=== PATIENT | female | born 1935 | race African-American/Black ===

== ENCOUNTER 2024-07-13 13:46 | Inpatient (IN) | payer OTHER ==
[~2024-07-13] VITALS: Ht 167.6 cm; Wt 92.2 kg
[2024-07-13 16:02] LABS: APPEARANCE,URINE CLEAR (CLEAR); BILIRUBIN,URINE NEGATIVE (NEGATIVE); COLOR,URINE LIGHT YELLOW (YELLOW); GLUCOSE, URINE (UA) NEGATIVE (NEGATIVE); KETONES,URINE NEGATIVE (NEGATIVE); LEUKOCYTE ESTERASE ,URINE NEGATIVE (NEGATIVE); NITRATE,URINE NEGATIVE (NEGATIVE); OCCULT BLOOD,URINE NEGATIVE (NEGATIVE); PH,URINE 6.5 (5.0-8.0); PH,URINE DRUG SCREEN 6.5 (5.0-8.0); PROTEIN,URINE NEGATIVE (NEGATIVE); SPECIFIC GRAVITIY, URINE 1.013 (1.003-1.030); UROBILINOGEN,URINE <=1.0 mg/dL (<=1.0)
[2024-07-13] MEDS: LORazepam 2 MG/ML VIAL IM ONE (16:02)
[2024-07-13] MEDS: DiphenhydrAMINE HCL 50 MG/ML VIAL IM ONE (16:02)
[2024-07-13] MEDS: HALOPERIDOL LACTATE 5 MG/ML VIAL IM ONE (16:03)
[2024-07-13 16:06] LABS: ALCOHOL, URINE DRUG SCREEN NEGATIVE (NEGATIVE); AMPHET/METH SCREEN,URINE NEGATIVE (NEGATIVE); BARBITURATE SCREEN, URINE NEGATIVE (NEGATIVE); BENZODIAZEPINES SCREEN,URINE NEGATIVE (NEGATIVE); CANNABINOID SCREEN,URINE NEGATIVE (NEGATIVE); COCAINE SCREEN,URINE NEGATIVE (NEGATIVE); METHADONE SCREEN, URINE NEGATIVE (NEGATIVE); OPIATE SCREEN,URINE NEGATIVE (NEGATIVE); PHENCYCLIDINE SCREEN,URINE NEGATIVE (NEGATIVE)
[2024-07-13 16:36] LABS: COVID AG,FIA SOURCE NASAL SWAB
[2024-07-13 16:53] LABS: SARS-COV2 (COVID) ANTIGEN,FIA Negative (Negative)
[2024-07-13 19:25] LABS: BASOPHILS % (AUTO) 0.6 % (0.0-2.0); EOSINOPHILS % (AUTO) 1.1 % (1.0-6.0); HEMOGLOBIN 14.5 g/dL (12.0-16.0); LYMPHOCYTES # (AUTO) 1.7 K/uL (1.0-4.8); LYMPHOCYTES % (AUTO) 26.4 % (22.0-44.0); MEAN CORPUSCULAR HEMOGLOBIN 29.5 pg (26.0-34.0); MEAN CORPUSCULAR HGB CONC 31.6 G/dL (31.0-37.0); MEAN CORPUSCULAR VOLUME 93 fL (80-100); MONOCYTES # (AUTO) 0.6 K/uL (0.1-1.0); MONOCYTES % (AUTO) 9.8 % (2.0-9.0); NEUTROPHILS # (AUTO) 3.9 K/uL (1.8-7.7); NEUTROPHILS % (AUTO) 62.1 % (40.0-70.0); PLATELET COUNT (AUTO) 262 K/uL (150-450); RED BLOOD CELL COUNT(AUTO) 4.93 MIL/uL (4.00-5.20); RED CELL DISTRIBUTION WIDTH 16.7 % (11.5-14.5); WHITE BLOOD COUNT (AUTO) 6.3 K/uL (4.5-11.0)
[2024-07-13 19:34] LABS: ANION GAP 5 mmol/L (8-16); CALCIUM, TOTAL 10.5 mg/dL (8.8-10.5); CARBON DIOXIDE 31 mmol/L (22-29); CHLORIDE 105 mmol/L (98-107); CREATININE 0.91 mg/dL (0.60-1.30); GLOMERULAR FILTR. RATE CALC > 60 mL/min (>60); GLUCOSE,RANDOM 94 mg/dL (70-110); POTASSIUM 3.9 mmol/L (3.5-5.1); SODIUM SERUM 141 mmol/L (136-145); UREA NITROGEN, BLOOD 13 mg/dL (7-18)
[2024-07-13 19:38] LABS: ALCOHOL, BLOOD (SERUM) < 3 mg/dL (0-10)
[2024-07-13] MEDS ORDERED: HALOPERIDOL 5 MG TABLET PO PRN (21:00)
[2024-07-13] MEDS ORDERED: ZOLPIDEM TARTRATE 10 MG TABLET PO PRN (21:00)
[2024-07-13] MEDS ORDERED: LORazepam 1 MG TABLET PO PRN (21:00)
[2024-07-14] MEDS: AmLODIPine BESYLATE 5 MG TABLET PO ONE (07:33)
[2024-07-14 09:11] VITALS: O2SAT 100
[2024-07-14 10:51] VITALS: BP 131/47; PULSE 73; RESP 18; TEMP 97.6; O2SAT 96
[2024-07-14] MEDS ORDERED: NICOTINE 14 MG/24 HOUR PATCH TD PRN (13:15)
[2024-07-14] MEDS ORDERED: PETROLATUM,WHITE 28 GM JELLY TP PRN (13:15)
[2024-07-14] MEDS ORDERED: DOCUSATE SODIUM 100 MG CAPSULE PO PRN (13:15)
[2024-07-14] MEDS ORDERED: GuaiFENesin/D-METHORPHAN [SUGAR-FREE] 200-20MG/10 ML SYRUP UDCUP PO PRN (13:15)
[2024-07-14] MEDS ORDERED: MAGNESIUM HYDROXIDE SUSPENSION 30 ML UDCUP PO PRN (13:15)
[2024-07-14] MEDS ORDERED: ONDANSETRON 4 MG TABLET PO PRN (13:15)
[2024-07-14] MEDS ORDERED: ALBUTEROL SULFATE HFA 90 MCG/PUFF 8 GM INHALER IH PRN (13:15)
[2024-07-14] MEDS ORDERED: LOPERAMIDE HCL 2 MG CAPSULE PO PRN (13:15)
[2024-07-14] MEDS ORDERED: ACETAMINOPHEN 325 MG TABLET PO PRN (13:15)
[2024-07-14] MEDS ORDERED: MAG HYDROX/ALUMINUM HYD/SIMETH ES 30 ML SUSPENSION UDCUP PO PRN (13:15)
[2024-07-14] MEDS: AmLODIPine BESYLATE 5 MG TABLET PO SCH (17:55)
[2024-07-14 20:00] VITALS: BP 137/77; PULSE 89; RESP 19; TEMP 97.1; O2SAT 100
[2024-07-15 09:23] VITALS: BP 117/74; PULSE 82; RESP 17; TEMP 98.1; O2SAT 96
[2024-07-15 09:47] LABS: BASOPHILS % (AUTO) 0.9 % (0.0-2.0); EOSINOPHILS % (AUTO) 2.7 % (1.0-6.0); HEMATOCRIT 44.5 % (36-46); HEMOGLOBIN 14.3 g/dL (12.0-16.0); LYMPHOCYTES # (AUTO) 1.3 K/uL (1.0-4.8); LYMPHOCYTES % (AUTO) 20.4 % (22.0-44.0); MEAN CORPUSCULAR HGB CONC 32.1 G/dL (31.0-37.0); MEAN CORPUSCULAR VOLUME 93 fL (80-100); MONOCYTES # (AUTO) 0.5 K/uL (0.1-1.0); MONOCYTES % (AUTO) 8.2 % (2.0-9.0); NEUTROPHILS # (AUTO) 4.2 K/uL (1.8-7.7); NEUTROPHILS % (AUTO) 67.8 % (40.0-70.0); PLATELET COUNT (AUTO) 248 K/uL (150-450); RED BLOOD CELL COUNT(AUTO) 4.76 MIL/uL (4.00-5.20); RED CELL DISTRIBUTION WIDTH 16.6 % (11.5-14.5); WHITE BLOOD COUNT (AUTO) 6.2 K/uL (4.5-11.0)
[2024-07-15 09:57] LABS: HEMOGLOBIN A1C 5.2 % (3.8-5.6)
[2024-07-15 10:09] LABS: ALANINE AMINOTRANSFERASE 21 U/L (12-78); ALBUMIN 3.1 g/dL (3.4-5.0); ALKALINE PHOSPHATASE 141 U/L (46-116); ANION GAP 7 mmol/L (8-16); ASPARTATE AMINOTRANSFERASE 26 U/L (15-37); BILIRUBIN,TOTAL 0.7 mg/dL (0.1-1.0); CALCIUM, TOTAL 10.3 mg/dL (8.8-10.5); CARBON DIOXIDE 28 mmol/L (22-29); CHLORIDE 105 mmol/L (98-107); CHOL/HDL RATIO 2.2 (3.9-5.7); CHOLESTEROL 199 mg/dL (131-200); CREATININE 0.94 mg/dL (0.60-1.30); GLOMERULAR FILTR. RATE CALC > 60 mL/min (>60); GLUCOSE,RANDOM 95 mg/dL (70-110); HDL CHOLESTEROL 90 mg/dL (40-60); LDL CHOL (CALC.) 100 mg/dL (0-130); SODIUM SERUM 140 mmol/L (136-145); THYROID STIMULATING HORMONE 2.57 uIU/mL (0.36-3.74); TOTAL PROTEIN, SERUM 7.1 g/dL (6.4-8.2); TRIGLYCERIDES 44 mg/dL (15-150); UREA NITROGEN, BLOOD 18 mg/dL (7-18)
[2024-07-15 21:33] VITALS: BP 191/89; PULSE 68; RESP 17; TEMP 98; O2SAT 100
[2024-07-15] MEDS: CloNIDine HCL 0.1 MG TABLET PO PRN (21:35)
[2024-07-16 08:40] VITALS: BP 144/68; PULSE 67; RESP 18; TEMP 98; O2SAT 99
[2024-07-16] MEDS: IBUPROFEN 400 MG TABLET PO PRN (08:40)
[2024-07-16 09:27] VITALS: BP 144/68; PULSE 67; RESP 18; TEMP 98.1; O2SAT 96
[2024-07-16 09:40] VITALS: BP 142/64; PULSE 68; RESP 17; TEMP 98.1; O2SAT 97
[2024-07-16] MEDS ORDERED: AMLO-257 PO (12:57)
== END 2024-07-16 13:15 | disposition home or self-care (01) | DRG 885 ==
LOC: EMS 13:48 → 3EI 07-14 10:02 → EMS 07-14 10:02 → 3EI 07-14 10:35
PROVIDERS: ADMIT Psychiatry & Neurology Psychiatry; ATTEND Psychiatry & Neurology Psychiatry
PROC: GZHZZZZ Group Psychotherapy (ICD-10-PCS; principal; 2024-07-14)
DX: F29 Unspecified psychosis not due to a substance or known physiological condition (principal); G93.40 Encephalopathy, unspecified; F03.911 Unspecified dementia, unspecified severity, with agitation; E66.9 Obesity, unspecified; I10 Essential (primary) hypertension; Z20.822 Contact with and (suspected) exposure to COVID-19; Z68.32 Body mass index [BMI] 32.0-32.9, adult
CPT/HCPCS: 70450; 80048; 80053; 80061; 80307; 81003; 83036; 84443; 85025; 96372; 99291; G0480; J1200; J1630; J2060